=== PATIENT | female | born 1975 | race Caucasian/White ===

== ENCOUNTER → 2018-01-10 | Emergency (ER) | payer OTHER ==
[~2018-01-10] MED LIST: SYNTHROID100 MCG PO; ZITHROMAX500 MG PO
== END | disposition left against medical advice (07) ==
LOC: ER 10:58
DX: Z53.20 Procedure and treatment not carried out because of patient's decision for unspecified reasons (principal)

== ENCOUNTER 2019-02-22 08:21 | Outpatient (CLI) | payer OTHER | END 2019-02-22 08:30 | disposition home or self-care (01) | LOC: MAMO-SONO 08:21 | DX: N60.11 Diffuse cystic mastopathy of right breast (principal); N60.12 Diffuse cystic mastopathy of left breast; Z12.31 Encounter for screening mammogram for malignant neoplasm of breast; Z87.898 Personal history of other specified conditions ==

== ENCOUNTER 2023-07-02 16:36 | Emergency (ER) | payer OTHER ==
[~2023-07-02] VITALS: Ht 152.4 cm; Wt 104.3 kg
[2023-07-02] MEDS ORDERED: ARMOUR THYROID120 M1 (17:09)
[2023-07-02] MEDS ORDERED: HYDROCORTISONE10 MG (17:10)
== END 2023-07-02 22:39 | disposition home or self-care (01) ==
LOC: ER 16:36
DX: S50.02XA Contusion of left elbow, initial encounter (principal); W18.39XA Other fall on same level, initial encounter; Y93.89 Activity, other specified; Z88.0 Allergy status to penicillin; Z88.6 Allergy status to analgesic agent; Z88.8 Allergy status to other drugs, medicaments and biological substances; E03.9 Hypothyroidism, unspecified; E27.1 Primary adrenocortical insufficiency